=== PATIENT | male | born 1950 | race Caucasian/White ===

== ENCOUNTER 2019-06-13 16:32 | Emergency (ER) | payer SELFPAY ==
[~2019-06-13] VITALS: Ht 185.4 cm; Wt 85.0 kg
[2019-06-13 16:33] VITALS: TEMP 97.8
[2019-06-13] MEDS ORDERED: AMITRIPTYLINE H10 M1 PO (17:42)
[2019-06-13] MEDS ORDERED: AVAPRO TAB150 MG/TAB PO (17:43)
[2019-06-13] MEDS ORDERED: PREDNISONE20 MG PO (17:43)
[2019-06-13 19:00] VITALS: BP 125/93; PULSE 102
== END 2019-06-13 19:15 | disposition short-term general hospital (02) ==
LOC: COL.ER 16:32
DX: S22.41XA Multiple fractures of ribs, right side, initial encounter for closed fracture (principal); S42.001A Fracture of unspecified part of right clavicle, initial encounter for closed fracture; S22.20XA Unspecified fracture of sternum, initial encounter for closed fracture; Z87.891 Personal history of nicotine dependence; V43.62XA Car passenger injured in collision with other type car in traffic accident, initial encounter
CPT/HCPCS: J1170; J3010